=== PATIENT | female | born 1945 | race Caucasian/White ===

== ENCOUNTER 2025-01-17 16:35 | Inpatient (IN) | payer MEDICARE ==
[~2025-01-17] VITALS: Ht 167.6 cm; Wt 61.7 kg
[2025-01-17 17:36] LABS: BASOPHILS % (AUTO) 0.9 % (0.0-2.0); EOSINOPHILS # (AUTO) 0.2 K/uL (0.0-0.7); EOSINOPHILS % (AUTO) 3.6 % (0.0-6.0); HEMATOCRIT 32 % (33-45); HEMOGLOBIN 10.5 g/dL (11.5-14.8); LYMPHOCYTES # (AUTO) 1.1 K/uL (0.8-4.8); LYMPHOCYTES % (AUTO) 22.4 % (20.0-44.0); MEAN CORPUSCULAR HEMOGLOBIN 27 PG (26.0-33.0); MEAN CORPUSCULAR HGB CONC 33 g/dl (31.0-36.0); MEAN CORPUSCULAR VOLUME 82 fL (82-100); MONOCYTES # (AUTO) 0.4 K/uL (0.1-1.30); MONOCYTES % (AUTO) 8.7 % (2.0-12.0); NEUTROPHILS # (AUTO) 3.2 K/uL (1.8-8.9); NEUTROPHILS % (AUTO) 64.4 % (43.0-81.0); PLATELET COUNT (AUTO) 150 K/uL (150-450); RED BLOOD CELL COUNT(AUTO) 3.87 MIL/uL (4.0-5.2); WHITE BLOOD COUNT (AUTO) 4.9 K/uL (4.3-11.0)
[2025-01-17 17:45] LABS: CALCIUM, SERUM 8.4 mg/dL (8.5-10.1); CARBON DIOXIDE 25 mmol/L (21-32); CHLORIDE 103 mmol/L (98-107); CREATININE 0.9 mg/dL (0.6-1.3); GLUCOSE 119 mg/dL (74-106); POTASSIUM 3.9 mmol/L (3.5-5.1); SODIUM SERUM 135 mmol/L (136-145); UREA NITROGEN, BLOOD 18 mg/dL (7-18)
[2025-01-17 17:50] LABS: ALANINE AMINOTRANSFERASE 19 U/L (12-78); ALBUMIN 3.1 g/dL (3.4-5.0); ALKALINE PHOSPHATASE 140 U/L (46-116); ASPARTATE AMINOTRANSFERASE 28 U/L (15-37); BILIRUBIN,DIRECT 0.2 mg/dL (0.0-0.2); BILIRUBIN,TOTAL 0.5 mg/dL (0.2-1.0); LIPASE 25 U/L (16-77); TOTAL PROTEIN, SERUM 6.4 g/dL (6.4-8.2)
[2025-01-17 18:06] LABS: APPEARANCE,URINE TURBID (CLEAR); BILIRUBIN,URINE NEGATIVE (NEGATIVE); BLOOD, URINE 2+ Ery/uL (NEGATIVE); COLOR,URINE YELLOW (YELLOW); KETONES,URINE TRACE mg/dL (NEGATIVE); LEUKOCYTE ESTERASE ,URINE 3+ (NEGATIVE); NITRITE, URINE NEGATIVE (NEGATIVE); PH,URINE 8.5 (5.0-8.0); PROTEIN,URINE 3+ mg/dl (NEGATIVE); UGLUCOSE NEGATIVE (NEGATIVE); UROBILINOGEN,URINE 0.2 EU/dL (0.2)
[2025-01-17 18:28] LABS: ADD URINE CULTURE YES; BACTERIA,URINE Many /HPF (None Seen); WBC,URINE 21-50 /HPF (0-3)
[2025-01-17 18:29] LABS: URINE AMORPHOUS URATE Many /HPF (None Seen)
[2025-01-17 18:42] LABS: URIC ACID CRYSTALS,URINE Few /HPF (None Seen)
[2025-01-17] MEDS: MEROPENEM 500 MG in IV NS 0.9% 50 ML IV ONE (19:05)
[2025-01-17] MEDS ORDERED: MULT-213 PO (19:07)
[2025-01-17] MEDS ORDERED: PANT40TA2 PO (19:07)
[2025-01-17] MEDS ORDERED: ASPI-1420 PO (19:07)
[2025-01-17] MEDS ORDERED: LACT1CAP61 PO (19:07)
[2025-01-17] MEDS ORDERED: NITR100C11 PO (19:07)
[2025-01-17] MEDS ORDERED: ATOR40TA PO (19:07)
[2025-01-17] MEDS ORDERED: ACET-637 PO (19:07)
[2025-01-17] MEDS ORDERED: BUME0.5T6 PO (19:07)
[2025-01-17] MEDS ORDERED: MAG HYDROX/AL HYDROX/SIMETH 30 ML UDC PO PRN (21:00)
[2025-01-17] MEDS ORDERED: ONDANSETRON HCL/PF 4 MG/2 ML VIAL IVP PRN (21:00)
[2025-01-17] MEDS ORDERED: MAGNESIUM HYDROXIDE 30 ML UDC PO PRN (21:00)
[2025-01-17 21:13] VITALS: BP 113/51; TEMP 97.3; O2SAT 98
[2025-01-17 22:53] VITALS: BP 113/51; TEMP 97.7; O2SAT 98
[2025-01-18] MEDS ORDERED: MEROPENEM 500 MG in IV NS 0.9% 50 ML IV SCH (02:30)
[2025-01-18] MEDS: MEROPENEM 1 G in IV NS 0.9% 100 ML IV SCH (06:03)
[2025-01-18 06:52] LABS: CREATININE 0.8 mg/dL (0.6-1.3); POTASSIUM 3.7 mmol/L (3.5-5.1)
[2025-01-18 07:22] LABS: BASOPHILS % (AUTO) 0.9 % (0.0-2.0); EOSINOPHILS # (AUTO) 0.2 K/uL (0.0-0.7); EOSINOPHILS % (AUTO) 5.8 % (0.0-6.0); HEMATOCRIT 31 % (33-45); HEMOGLOBIN 9.9 g/dL (11.5-14.8); LYMPHOCYTES # (AUTO) 0.9 K/uL (0.8-4.8); LYMPHOCYTES % (AUTO) 24.9 % (20.0-44.0); MEAN CORPUSCULAR HEMOGLOBIN 27 PG (26.0-33.0); MEAN CORPUSCULAR HGB CONC 32 g/dl (31.0-36.0); MEAN CORPUSCULAR VOLUME 82 fL (82-100); MONOCYTES # (AUTO) 0.3 K/uL (0.1-1.30); NEUTROPHILS # (AUTO) 2.2 K/uL (1.8-8.9); NEUTROPHILS % (AUTO) 59.4 % (43.0-81.0); PLATELET COUNT (AUTO) 134 K/uL (150-450); RED BLOOD CELL COUNT(AUTO) 3.74 MIL/uL (4.0-5.2); WHITE BLOOD COUNT (AUTO) 3.7 K/uL (4.3-11.0)
[2025-01-18 08:00] VITALS: BP 107/60; TEMP 97.5; O2SAT 97
[2025-01-18] MEDS: BUMETANIDE (1 MG) 1 MG TABLET PO SCH (09:15)
[2025-01-18] MEDS: ASPIRIN EC 81 MG TABLET.DR PO SCH (09:15)
[2025-01-18] MEDS: LACTOBACILLUS RHAMNOSUS GG 1 EACH CAP.SPRINK PO SCH (09:16)
[2025-01-18] MEDS: PANTOPRAZOLE 40 MG TABLET.DR PO SCH (09:16)
[2025-01-18] MEDS: MULTIVIT W/MINERALS 1 TAB TABLET PO SCH (09:16)
[2025-01-18] MEDS: ATORVASTATIN 40 MG TABLET PO SCH (09:16)
[2025-01-18 16:00] VITALS: BP 124/64; TEMP 98.2; O2SAT 98
[2025-01-18 20:00] VITALS: BP 122/61; TEMP 97.5; O2SAT 98
[2025-01-18] MEDS: ACETAMINOPHEN 325 MG TABLET PO PRN (20:07)
[2025-01-19 08:00] VITALS: BP 152/53; TEMP 97.6; O2SAT 95
[2025-01-19] MEDS ORDERED: MERO1PIG IV (11:04)
[2025-01-19 16:00] VITALS: BP 124/66; TEMP 98.1; O2SAT 98
== END 2025-01-19 20:23 | disposition home health service (06) | DRG 690 ==
LOC: ER 16:55 → MED 20:37
PROVIDERS: ATTEND Internal Medicine
DX: N30.91 Cystitis, unspecified with hematuria (principal); I50.32 Chronic diastolic (congestive) heart failure; Z16.12 Extended spectrum beta lactamase (ESBL) resistance; I11.0 Hypertensive heart disease with heart failure; E86.0 Dehydration; D64.9 Anemia, unspecified; E78.5 Hyperlipidemia, unspecified; Z88.0 Allergy status to penicillin; Z90.49 Acquired absence of other specified parts of digestive tract; Z95.2 Presence of prosthetic heart valve; Z87.440 Personal history of urinary (tract) infections; B96.20 Unspecified Escherichia coli [E. coli] as the cause of diseases classified elsewhere; Z51.5 Encounter for palliative care; Z86.718 Personal history of other venous thrombosis and embolism; Z88.5 Allergy status to narcotic agent
CPT/HCPCS: 36415; 80048-TC; 80076-TC; 81001; 83690-TC; 83735-TC; 84100-TC; 84484-TC; 85025-TC; 87081-TC; 87086-TC; 87186-TC; 97110-TC; 97116-TC; 97530-TC; A4223; G0378; J2185; J7030; J7050